=== PATIENT | male | born 1985 | race Caucasian/White ===

== ENCOUNTER 2016-10-04 14:48 | Emergency (ER) | payer BC ==
[~2016-10-04] VITALS: Ht 167.6 cm; Wt 106.0 kg
[~2016-10-04 14:48] MED LIST: FLUD0.1T10 PO; HYD10 PO
[2016-10-04 14:52] VITALS: TEMP 37.2; Ht 167.6 cm; Wt 106.0 kg
[2016-10-04] MEDS ORDERED: ONDANSETRON INJ 2 MG/ML 2 ML VIAL IV STA (15:26)
[2016-10-04] MEDS ORDERED: MoRPHine SULFATE 4 MG/ML 1 ML CARP IV STA (15:26)
[2016-10-04 15:27] VITALS: O2SAT 98
[2016-10-04 15:28] LABS: HEMATOCRIT 46.6 % (42-52); MEAN CELL VOLUME 84.4 fL (80-100); MEAN CORPUSCULAR HEMOGLOBIN 28.3 pg (25-34); MEAN CORPUSCULAR HGB CONC 33.5 g/dl (32-36); MEAN PLATELET VOLUME 9.9 fL (7.4-10.4); PLATELET COUNT 427 K/uL (130-400); RED BLOOD COUNT 5.52 M/uL (4.7-6.1); WHITE BLOOD COUNT 11.46 K/uL (4.8-10.8)
--- NOTE | 2016-10-04 15:37 | DIAGNOSTIC IMAGING REPORT ---
CHEST ONE VIEW PORTABLE CLINICAL HISTORY: chest pain pain COMPARISON STUDY: 03/17/2016 FINDINGS: The bones soft tissues and hemidiaphragms are normal. The cardiomediastinal silhouette is normal. The lungs are clear. The pulmonary vasculature is normal. IMPRESSION: Negative chest. Electronically signed by: Mj Graf M.D. 10/04/2016 3:36 PM Dictated Date/Time: 10/04/2016 3:35 PM
[2016-10-04 15:57] LABS: ALB/GLOB RATIO 1.1 (0.9-2); ALKALINE PHOSPHATASE 90 U/L (45-117); ALT/SGPT 38 U/L (12-78); BLOOD UREA NITROGEN 10 mg/dl (7-18); BUN/CREATININE RATIO 8.9 (10-20); CARBON DIOXIDE 23 mmol/L (21-32); CHLORIDE 106 mmol/L (98-107); GLUCOSE 95 mg/dl (70-99); SODIUM 138 mmol/L (136-145)
[2016-10-04 16:45] LABS: POTASSIUM 4.8 mmol/L (3.5-5.1)
[2016-10-04 16:57] LABS: INR 0.9 (0.9-1.1)
[2016-10-04 17:08] VITALS: PULSE 83; O2SAT 95
[2016-10-04 17:09] VITALS: BP 137/73
--- NOTE | 2016-10-04 19:20 | EMERGENCY ROOM VISIT NOTE ---
History Report prepared by Tigre: Nat Dyson Under the Supervision of: Dr. Venkatesh David M.D. First contact with patient: 15:18 Chief Complaint: CHEST PAIN Stated Complaint: SHARP CP,WEAKNESS,DIZZY,HARD TO BREATHE History of Present Illness The patient is a 30 year old male who presents to the Emergency Room with complaints of waxing and waning left-sided chest pain beginning 1 hour prior to arrival. The pain is described as being sharp and coming and going lasting only 10 seconds. The patient states that he was driving when the pain began but had a friend drive him to the ED. He also complains of some shortness of breath and generalized weakness. The patient denies fevers, lower extremity swelling, and cold-like symptoms. 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 The patient states that he does not smoke or do drugs. He says that he has no history of clots in his legs or lungs and there is no history of clots in his family. Source of History: patient Onset: 1 hour prior to arrival Position: chest (left) Quality: sharp Timing: waxes/wanes Associated Symptoms: + SOB, + weakness, No fevers Note: also denies: lower extremity swelling and cold-like symptoms Review of Systems See HPI for pertinent positives & negatives. A total of 10 systems reviewed and were otherwise negative. Past Medical & Surgical Medical Problems: (1) Asthma (2) Bronchitis (3) congenital adrenal hyperplaysia (4) Pleurisy Family History No pertinent family history Social History Smoking Status: Never Smoker Alcohol Use: occasionally Drug Use: none Marital Status: Housing Status: lives with friends Occupation Status: employed Current/Historical Medications Scheduled Fludrocortisone Acetate (Florinef), 0.1 MG PO QPM Hydrocortisone (Cortef), 10 MG PO BID Allergies Coded Allergies: No Known Allergies (Verified , 10/04/16) Physical Exam Vital Signs Date Time Temp Pulse Resp B/P (MAP) Pulse Ox O2 Delivery O2 Flow Rate FiO2 10/04/16 17:09 137/73 10/04/16 17:08 83 42 95 10/04/16 17:03 85 28 95 10/04/16 17:01 148/92 10/04/16 16:58 90 23 97 10/04/16 16:53 77 23 96 10/04/16 16:48 87 20 96 10/04/16 16:43 77 26 96 10/04/16 16:38 85 25 92 10/04/16 16:33 89 29 96 10/04/16 16:28 89 29 95 10/04/16 16:23 91 25 95 10/04/16 16:18 89 39 96 10/04/16 16:13 95 29 96 10/04/16 16:08 104 22 96 10/04/16 16:03 86 30 150/101 94 10/04/16 16:02 206/ 10/04/16 16:01 90 20 150/101 98 Nasal Cannula 10/04/16 15:58 87 30 97 10/04/16 15:53 85 32 93 10/04/16 15:48 85 27 96 10/04/16 15:43 83 27 95 10/04/16 15:38 86 23 95 10/04/16 15:33 96 27 96 10/04/16 15:31 86 22 161/97 99 Room Air 10/04/16 15:28 84 29 97 10/04/16 15:27 98 Room Air 10/04/16 15:27 84 22 161/97 99 Room Air 10/04/16 15:27 98 Room Air 10/04/16 15:23 90 34 96 10/04/16 15:21 83 10/04/16 15:11 161/97 10/04/16 14:52 37.2 96 17 160/97 94 Room Air Physical Exam Constitutional: Vital signs reviewed. Eyes: Pupils are equal round reactive to light. Conjunctiva are noninjected. ENT: Pharynx is clear without erythema or exudate. Mucous membranes are moist. Neck supple without meningeal signs. Respiratory: Clear to auscultation bilaterally. Breath sounds are equal bilaterally. Cardiovascular: Regular rate and rhythm. No rubs or gallops. GI: Soft, nondistended and nontender. Bowel sounds are present. Musculoskeletal: No peripheral edema. No lower extremity tenderness. Tenderness to left pectoralis muscle. Integumentary: No cyanosis. Neurological: The patient is awake and alert. No focal deficits. Psychiatric: Normal affect. Medical Decision & Procedures ER Provider Diagnostic Interpretation: X-ray results as stated below per interpretation by me and the radiologist: CHEST ONE VIEW PORTABLE CLINICAL HISTORY: chest pain pain COMPARISON STUDY: 03/17/2016 FINDINGS: The bones soft tissues and hemidiaphragms are normal. The cardiomediastinal silhouette is normal. The lungs are clear. The pulmonary vasculature is normal. IMPRESSION: Negative chest. Electronically signed by: Mj Graf M.D. 10/04/2016 3:36 PM Dictated Date/Time: 10/04/2016 3:35 PM Laboratory Results 10/04/16 15:10 10/04/16 15:10 10/04/16 15:50 Test 10/04/16 15:10 10/04/16 15:17 10/04/16 15:39 10/04/16 15:50 Red Blood Count 5.52 M/uL (4.7-6.1) Mean Corpuscular Volume 84.4 fL (80-100) Mean Corpuscular Hemoglobin 28.3 pg (25-34) Mean Corpuscular Hemoglobin Concent 33.5 g/dl (32-36) RDW Standard Deviation 41.8 fL (36.4-46.3) RDW Coefficient of Variation 13.5 % (11.5-14.5) Mean Platelet Volume 9.9 fL (7.4-10.4) Anion Gap 9.0 mmol/L (3-11) Est Creatinine Clear Calc Drug Dose 114.1 ml/min Estimated GFR () 105.3 Estimated GFR (Non- 90.9 BUN/Creatinine Ratio 8.9 (10-20) Calcium Level 9.0 mg/dl (8.5-10.1) Total Bilirubin 0.4 mg/dl (0.2-1) Alanine Aminotransferase (ALT/SGPT) 38 U/L (12-78) Alkaline Phosphatase 90 U/L (45-117) Creatine Kinase MB 1.0 ng/ml (0.5-3.6) Creatine Kinase MB Ratio (0-3.0) Total Protein 7.9 gm/dl (6.4-8.2) Albumin 4.1 gm/dl (3.4-5.0) Globulin 3.8 gm/dl (2.5-4.0) Albumin/Globulin Ratio 1.1 (0.9-2) Bedside Troponin I < 0.030 ng/ml (0-0.045) Bedside D-Dimer 290 ng/mlFEU (0-450) Aspartate Amino Transf (AST/SGOT) 39 U/L (15-37) Total Creatine Kinase 762 U/L (39-308) Test 10/04/16 16:28 Prothrombin Time 10.0 SECONDS (9.0-12.0) Prothromb Time International Ratio 0.9 (0.9-1.1) Activated Partial Thromboplast Time 26.7 SECONDS (21.0-31.0) Partial Thromboplastin Ratio 1.0 Laboratory results as reviewed by me. Medications Administered Medications (Trade) Dose Ordered Sig/Leandro Route Start Time Stop Time Status Last Admin Dose Admin Morphine Sulfate (MoRPHine SULFATE INJ) 4 mg NOW STAT IV 10/04/16 15:26 10/04/16 15:27 DC 10/04/16 15:58 4 MG Ondansetron HCl (Zofran Inj) 4 mg NOW STAT IV 10/04/16 15:26 10/04/16 15:27 DC 10/04/16 15:59 4 MG ECG Indication: chest pain Rate (beats per minute): 82 Rhythm: normal sinus Findings: no acute ischemic change, no ectopy, other (limited interpretation due to motion artifact ) ED Course 1519: The patient was evaluated in room C6. A complete history and physical exam was performed. 1526: Ordered Ondansetron HCl 4 mg IV, Morphine Sulfate 4 mg IV. 1700: I reviewed the test results with the patient. He is feeling better. We discussed the need for follow-up. 1705: Upon reevaluation, the patient appeared to have improvement of his symptoms. I discussed tonight's findings with him. He verbalized agreement of the treatment plan. He was discharged home. Medical Decision This is a 30-year-old male who presents with left-sided chest pain. Differential diagnosis includes pulmonary embolism, DVT, pleurisy, pneumothorax , GA, muscle tear. I did perform a limited focused review of portions of the patient's old chart on the electronic medical record. The patient has had no recent pertinent visits to this hospital. Blood Pressure Screening: Patient was found to have an elevated blood pressure and was referred to their primary doctor for recheck and further treatment. Medication Reconciliation: I attest that I have personally reviewed the patient' s current medication list. I did evaluate the patient as noted above. The patient is presenting with left- sided chest pain which lasts only 10 seconds at a time. He states it started about 2:30 PM today. He does admit to lifting weights recently and stated that he bench presses 350 pounds. He does have some soreness to the left pectoralis muscle. IV access was established. The patient was placed on a continuous teletypesetter monitor. I did treat him with IV morphine and Zofran. I did order and personally review the patient's 12-lead EKG and chest x-ray as described above. His 12-lead EKG is unremarkable. Chest x-ray does not show any signs of pneumothorax or widened mediastinum. I did order and review the patient's blood work as noted in the electronic medical record. D-dimer and troponin are both negative. I did reassess the patient. He is feeling better. I did discuss the test results with the patient. At this time the cause of his chest pain is not completely clear but there is no indication for hospitalization at this time. He has only had the pain for several hours. He was advised to follow closely with his doctor for further evaluation. He was discharged in good condition. Impression Primary Impression: Acute chest pain Scribe Attestation The scribe's documentation has been prepared under my direct and personally reviewed by me in its entirety. I confirm that the note above accurately reflects all work, treatment, procedures, and medical decision making performed by me. Departure Information Dispostion Home / Self-Care Referrals Bel Duncan DO (PCP) Forms HOME CARE DOCUMENTATION FORM, IMPORTANT VISIT INFORMATION Patient Instructions ED Chest Pain Atypical Unkn Cause, My [facility] Additional Instructions You have been examined and treated today on an emergency basis only. This is not a substitute for, or an effort to provide, complete comprehensive medical care. It is impossible to recognize and treat all injuries or illnesses in a single emergency department visit. It is therefore important that you follow up closely with your physician. Call as soon as possible for an appointment. Return for worsening symptoms or if you develop fever, vomiting, difficulty breathing, abdominal pain or any other concerning symptoms.
== END 2016-10-04 17:15 | disposition home or self-care (01) ==
LOC: C.EDB 14:49 → C.EDC 17:15
DX: R07.9 Chest pain, unspecified (principal); J45.909 Unspecified asthma, uncomplicated; Z79.899 Other long term (current) drug therapy

== ENCOUNTER 2017-03-26 10:43 | Emergency (ER) | payer OTHER, BC ==
[~2017-03-26] VITALS: Ht 167.6 cm; Wt 102.2 kg
[2017-03-26 11:04] VITALS: TEMP 37; Ht 167.6 cm; Wt 102.2 kg
[2017-03-26] MEDS ORDERED: ONDANSETRON INJ 2 MG/ML 2 ML VIAL IV STA (11:45)
[2017-03-26] MEDS ORDERED: HYD10 PO (11:56)
[2017-03-26 12:10] LABS: BASO % 0.3 %; BASO ABS # 0.02 K/uL (0-0.2); EOS % 0.7 %; EOS ABS # 0.05 K/uL (0-0.5); HEMATOCRIT 46.9 % (42-52); HEMOGLOBIN 16.3 g/dL (14.0-18.0); IG# 0.02 K/uL (0.00-0.02); LYMPH ABS # 1.91 K/uL (1.2-3.4); MEAN CORPUSCULAR HEMOGLOBIN 29.5 pg (25-34); MEAN CORPUSCULAR HGB CONC 34.8 g/dl (32-36); MEAN PLATELET VOLUME 10.3 fL (7.4-10.4); MONO % 7.5 %; MONO ABS # 0.53 K/uL (0.11-0.59); NEUT % 64.2 %; NEUT ABS # 4.55 K/uL (1.4-6.5); PLATELET COUNT 357 K/uL (130-400); RED CELL DISTRIBUTION WIDTH CV 13.5 % (11.5-14.5); RED CELL DISTRIBUTION WIDTH SD 41.6 fL (36.4-46.3); WHITE BLOOD COUNT 7.08 K/uL (4.8-10.8)
--- NOTE | 2017-03-26 12:28 | DIAGNOSTIC IMAGING REPORT ---
CHEST 2 VIEWS ROUTINE CLINICAL HISTORY: Dizzy, nausea. COMPARISON STUDY: Chest radiograph October 04, 2016. FINDINGS: Lung volumes are at the lower limits of normal. This is unchanged. No pneumothorax or pleural effusion is present. Pulmonary vascularity is normal. There is no consolidation. Cardiomediastinal silhouette is normal. The appearance of the chest is unchanged. IMPRESSION: No acute cardiopulmonary findings. Electronically signed by: Dequan Laguerre M.D. 03/26/2017 12:27 PM Dictated Date/Time: 03/26/2017 12:26 PM
[2017-03-26 12:30] LABS: BLOOD UREA NITROGEN 11 mg/dl (7-18); CALCIUM 9.8 mg/dl (8.5-10.1); CARBON DIOXIDE 29 mmol/L (21-32); CREATININE 1.12 mg/dl (0.60-1.40); GLUCOSE 99 mg/dl (70-99); POTASSIUM 4.3 mmol/L (3.5-5.1); SODIUM 134 mmol/L (136-145)
[2017-03-26 14:06] VITALS: BP 166/99; PULSE 76; O2SAT 94
--- NOTE | 2017-03-26 22:06 | EMERGENCY ROOM VISIT NOTE ---
History First contact with patient: 11:33 Chief Complaint: OTHER COMPLAINT Stated Complaint: NAUSEA, DIZZY, COUGHING, VOMITING-WORK RELATED History of Present Illness The patient is a 31 year old male who presents to the Emergency Room with complaints of nausea, dizziness, coughing and an episode of vomiting. 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 The patient got in the vehicle at 8:15 AM. At 8:37 AM, he started to develop these symptoms. He reports smelling a gasoline smell and smell as if something was burning. He was able to get out of the vehicle, and after breathing the cold air, reported that nausea became worse and vomited. He also reported some mild shortness of breath, but denies any chest tightness or pain. He rates his overall discomfort a 3 out of 10 on my exam. The patient denies any symptoms prior to arriving at work. He denies any recent sick contacts. The patient does not smoke cigarettes or have any significant secondhand exposure to smoking products. There was another male in the vehicle as well who was sitting in the back and had no symptoms from this incident. Review of Systems HEENT: Denies visual problems, hearing loss, tinnitus. Denies difficulty swallowing or oral lesions. PULMONARY: Denies sputum production or hemoptysis. Otherwise see history of present illness. CARDIOVASCULAR: Denies chest pain, palpitations, dyspnea on exertion, orthopnea or peripheral edema. GASTROINTESTINAL: Denies diarrhea, constipation or abdominal pain. Otherwise see history of present illness. GENITOURINARY: Denies dysuria, frequency, urgency or nocturia. NEUROLOGIC: Denies history of epilepsy, CVA, TIA or chronic headaches. MUSCULOSKELETAL: Denies history of joint tenderness/swelling. SKIN: Denies rashes or lesions. PSYCHIATRIC: Denies history of depression or mental illness. ENDOCRINE: Denies history of diabetes or thyroid disorders. Past Medical/Surgical History Medical Problems: (1) Asthma (2) Bronchitis (3) congenital adrenal hyperplaysia (4) Pleurisy Family History No pertinent family history Social History Smoking Status: Never Smoker Alcohol Use: occasionally Drug Use: none Marital Status: Housing Status: lives with friends Occupation Status: employed Current/Historical Medications Scheduled Fludrocortisone Acetate (Florinef), 0.15 MG PO QPM Hydrocortisone (Cortef), 20 MG PO QAM Hydrocortisone (Cortef), 10 MG PO QPM Physical Exam Vital Signs Date Time Temp Pulse Resp B/P (MAP) Pulse Ox O2 Delivery O2 Flow Rate FiO2 03/26/17 14:06 76 16 166/99 94 Room Air 03/26/17 13:00 74 15 165/92 96 Room Air 03/26/17 11:04 37.0 89 20 160/97 96 Room Air Physical Exam CONSTITUTIONAL: Healthy and well nourished. Alert and oriented X 3 with positive affect. Patient does not appear in any acute distress, but does report nausea. HEENT: Normocephalic, atraumatic. Pupils equal, round and reactive. No nystagmus. Ears and nares are clear. No scleral icterus or conjunctival injection/pallor. NECK: Full active range of motion without discomfort. No JVD or carotid bruits. RESPIRATORY: Clear to auscultation bilaterally with no wheezing, crackles, rhonchi or stridor. CARDIOVASCULAR: Regular rate and rhythm with no murmurs, rubs or gallops. GASTROINTESTINAL: Bowel sounds present in all quadrants. Soft and nontender to palpation. MUSCULOSKELETAL: Full range of motion of all joints without discomfort. INTEGUMENTARY: No rash or other significant dermatologic conditions noted. NEUROLOGIC: Cranial nerves II-XII grossly intact. No focal neurologic deficits noted. Negative pronator drift. No ataxia with ambulation. Medical Decision & Procedures ER Provider Diagnostic Interpretation: My interpretation of an ECG shows a normal sinus rhythm of [address] elevation or other conduction abnormalities. Peter reading suggests an age undetermined inferior infarct, however comparison with an ECG dated 10/04/16 does not show any significant changes. My interpretation of a two-view chest x-ray does not show any consolidations, pneumothorax or other acute findings. Radiologist report is as follows: CHEST 2 VIEWS ROUTINE CLINICAL HISTORY: Dizzy, nausea. COMPARISON STUDY: Chest radiograph October 04, 2016. FINDINGS: Lung volumes are at the lower limits of normal. This is unchanged. No pneumothorax or pleural effusion is present. Pulmonary vascularity is normal. There is no consolidation. Cardiomediastinal silhouette is normal. The appearance of the chest is unchanged. IMPRESSION: No acute cardiopulmonary findings. Laboratory Results 03/26/17 11:55 Red Blood Count 5.52, Mean Corpuscular Volume 85.0, Mean Corpuscular Hemoglobin 29.5, Mean Corpuscular Hemoglobin Concent 34.8, Mean Platelet Volume 10.3, Neutrophils (%) (Auto) 64.2, Lymphocytes (%) (Auto) 27.0, Monocytes (%) (Auto) 7.5, Eosinophils (%) (Auto) 0.7, Basophils (%) (Auto) 0.3, Neutrophils # (Auto) 4.55, Lymphocytes # (Auto) 1.91, Monocytes # (Auto) 0.53, Eosinophils # (Auto) 0.05, Basophils # (Auto) 0.02 03/26/17 11:55 Test 03/26/17 11:55 03/26/17 12:18 White Blood Count 7.08 K/uL (4.8-10.8) Red Blood Count 5.52 M/uL (4.7-6.1) Hemoglobin 16.3 g/dL (14.0-18.0) Hematocrit 46.9 % (42-52) Mean Corpuscular Volume 85.0 fL (80-100) Mean Corpuscular Hemoglobin 29.5 pg (25-34) Mean Corpuscular Hemoglobin Concent 34.8 g/dl (32-36) Platelet Count 357 K/uL (130-400) Mean Platelet Volume 10.3 fL (7.4-10.4) Neutrophils (%) (Auto) 64.2 % Lymphocytes (%) (Auto) 27.0 % Monocytes (%) (Auto) 7.5 % Eosinophils (%) (Auto) 0.7 % Basophils (%) (Auto) 0.3 % Neutrophils # (Auto) 4.55 K/uL (1.4-6.5) Lymphocytes # (Auto) 1.91 K/uL (1.2-3.4) Monocytes # (Auto) 0.53 K/uL (0.11-0.59) Eosinophils # (Auto) 0.05 K/uL (0-0.5) Basophils # (Auto) 0.02 K/uL (0-0.2) RDW Standard Deviation 41.6 fL (36.4-46.3) RDW Coefficient of Variation 13.5 % (11.5-14.5) Immature Granulocyte % (Auto) 0.3 % Immature Granulocyte # (Auto) 0.02 K/uL (0.00-0.02) D-Dimer < 190 ug/L FEU (0-500) Anion Gap 4.0 mmol/L (3-11) Est Creatinine Clear Calc Drug Dose 108.9 ml/min Estimated GFR () 102.3 Estimated GFR (Non- 88.3 BUN/Creatinine Ratio 10.2 (10-20) Calcium Level 9.8 mg/dl (8.5-10.1) Troponin I < 0.015 ng/ml (0-0.045) Thyroid Stimulating Hormone (TSH) 1.450 uIu/ml (0.300-4.500) Carboxyhemoglobin 0.0 % [facility] The above labs were reviewed and were grossly normal, including carboxyhemoglobin level. Troponin was also normal. Medications Administered Medications (Trade) Dose Ordered Sig/Leandro Route Start Time Stop Time Status Last Admin Dose Admin Ondansetron HCl (Zofran Inj) 4 mg NOW STAT IV 03/26/17 11:45 03/26/17 11:51 DC 03/26/17 12:02 4 MG ED Course Patient history and physical exam were performed. Nurse's notes were reviewed. Vital signs were reviewed. The patient was initially hypertensive with a blood pressure 160/97. O2 saturation was 96% with a respiratory rate of 20. Heart rate was normal, and the patient was also afebrile. Because of concern for possible carbon monoxide poisoning, I suggested administering oxygen by mask. The patient refused. IV access was established, and labs were drawn. Patient was administered IV Zofran for nausea. ECG and two-view chest x-ray were normal. Review of labs shows no acute abnormalities. Carboxyhemoglobin level was also normal, along with d-dimer and troponin. At this point, the patient was encouraged to follow-up with his Worker's Compensation physician for further reevaluation and management. He was instructed to return for any progressively worsening symptoms. The patient was happy with plan of care, and voiced understanding of all discharge instructions. Medical Decision Patient presents to the emergency department with abrupt onset of symptoms while driving in a vehicle at work this morning. His workup today is not suggestive of carbon monoxide poisoning, acute respiratory etiologies, myocardial infarction, pulmonary embolus, electrolyte abnormality, abnormal thyroid state, anemia or cardiac dysrhythmia. Exact etiology of the patient's symptoms are uncertain at this time. Do feel that the patient is safe for outpatient management with instructions to return for any worsening symptoms. Medication Reconcilliation Current Medication List: was personally reviewed by me Blood Pressure Screening Patient's blood pressure: Normal blood pressure Impression Primary Impression: Dizziness Additional Impressions: Nausea and vomiting Work-related condition Departure Information Referrals Bel Duncan DO (PCP) Patient Instructions My [facility] Health Problem Qualifiers Additional Impressions: Nausea and vomiting Vomiting type: unspecified Vomiting Intractability: non-intractable Qualified Codes: R11.2 - Nausea with vomiting, unspecified
== END 2017-03-26 14:11 | disposition home or self-care (01) ==
LOC: C.EDB 10:44 → C.EDC 14:11
DX: R42 Dizziness and giddiness (principal); R11.0 Nausea; Y99.0 Civilian activity done for income or pay; J45.909 Unspecified asthma, uncomplicated